=== PATIENT | male | born 1945 | race Caucasian/White ===

== ENCOUNTER 2020-08-31 08:22 | Day surgery (SDC) | payer MEDICARE, BC ==
[2020-08-29 16:38] LABS: ALANINE AMINOTRANSFERASE 27 U/L (12-78); ANION GAP 6 mmol/L (5-15); CALCIUM 9.5 mg/dL (8.5-10.1); CHLORIDE 104 mmol/L (98-107); CREATININE 1.31 mg/dL (0.7-1.3)
[2020-08-29 16:40] LABS: ALKALINE PHOSPHATASE 68 U/L (45-117); BILIRUBIN,TOTAL 0.5 mg/dL (0.2-1.0); TOTAL PROTEIN 7.4 g/dL (6.4-8.2)
[~2020-08-31] VITALS: Ht 182.9 cm; Wt 131.1 kg
[~2020-08-31 08:22] MED LIST: ALBU8.5H8 INH; ASPI81TA45 PO; BUDE10.2 INH; ESCI10TA10 PO; FLUT9.9S NAS; HYDR25TA6 PO; META800T PO; MONT10TA6 PO; MULT-658 PO; POLY10DR3 EACHEYE; ROSU40TA PO; TADA5TAB2 PO; UBID100C41 PO; UBID200C35 PO; VERA240T10 PO
[2020-08-31 08:47] VITALS: BP 132/79
[2020-08-31] MEDS ORDERED: LACTATED RINGERS 1,000 ML IV SCH (09:00)
[2020-08-31] MEDS ORDERED: CHLORHEXIDINE 15 ML UDC MM ONE (09:00)
[2020-08-31] MEDS ORDERED: HYDROmorphone 1 MG/ML, 1ML INJ IVPush PRN (09:30)
[2020-08-31] MEDS ORDERED: FENTANYL PF 100 MCG/2ML IV PRN (09:30)
[2020-08-31] MEDS ORDERED: PROMETHAZINE 25 MG/ML, 1ML IVPush PRN (09:30)
[2020-08-31] MEDS ORDERED: MEPERIDINE/PF 25MG/0.5ML IVPush PRN (09:30)
[2020-08-31] MEDS ORDERED: KETOROLAC 30 MG/1 ML IVPush PRN (09:30)
[2020-08-31] MEDS ORDERED: HYDROcodone/APAP 7.5-325MG/15ML UDC PO PRN (09:30)
[2020-08-31] MEDS ORDERED: MIDAZOLAM 1 MG/ML, 2ML ONE (10:19)
[2020-08-31] MEDS ORDERED: FENTANYL PF 100 MCG/2ML ONE ×2 (10:19→13:11)
[2020-08-31] MEDS ORDERED: POLYTRIM OPHTH 10ML EACHEYE SCH (10:30)
[2020-08-31] MEDS ORDERED: BUPIVACAINE/PF 0.5% ONE (10:58)
[2020-08-31] MEDS ORDERED: LIDOCAINE/PF 1%, 30ML ONE (10:58)
[2020-08-31] MEDS ORDERED: EPINEPHRINE 1 MG/ML, 1ML ONE (10:58)
[2020-08-31] MEDS ORDERED: LIDOCAINE-MPF 2% ,5ML ONE (11:23)
[2020-08-31] MEDS ORDERED: ROCURONIUM 10MG/ML,5ML ONE (11:23)
[2020-08-31] MEDS ORDERED: CEFAZOLIN 1,000 MG ONE (11:23)
[2020-08-31] MEDS ORDERED: LIDOCAINE 4%, 4 ML SYR/CANN TP ONE (11:23)
[2020-08-31] MEDS ORDERED: SUCCINYLCHOLINE 20 MG/ML, 10ML ONE (11:23)
[2020-08-31] MEDS ORDERED: DEXAMETHASONE 4 MG/ML, 5ML ONE (11:23)
[2020-08-31] MEDS ORDERED: ONDANSETRON 2MG/ML, 2ML ONE (11:23)
[2020-08-31] MEDS ORDERED: PROPOFOL 10 MG/ML, 20ML ONE (11:23)
[2020-08-31] MEDS ORDERED: BUPIVACAINE/PF-EPI 0.5% 1:200K INFIL ONE (12:05)
[2020-08-31] MEDS ORDERED: LIDOCAINE 1%-EPI 1:100K, 30ML INFIL ONE (12:06)
[2020-08-31] MEDS ORDERED: OXYcodone 5 MG/5 ML ORAL.SOL UDC ONE ×2 (14:21→15:34)
[2020-08-31] MEDS: OXYcodone 5 MG/5 ML ORAL.SOL UDC PO PRN ×2 (14:22→15:34)
[2020-08-31] MEDS ORDERED: hydrALAzine 20 MG/ML, 1ML ONE (14:44)
[2020-08-31] MEDS: hydrALAzine 20 MG/ML, 1ML IV PRN ×2 (14:47→15:14)
[2020-08-31] MEDS ORDERED: TEMPLATE NON-FORMULARY MED. (Budesonide/Formoterol Fumarate (Symbicort 160-4.5 Mcg Inhaler HOMEINH SCH (21:00)
[2020-08-31] MEDS ORDERED: ATORVASTATIN 80 MG TABLET PO SCH (21:00)
[2020-08-31] MEDS ORDERED: FLUTICASONE NASAL SPRAY 16GM NAS SCH (21:00)
[2020-08-31] MEDS ORDERED: ASPIRIN 81 MG TABLET EC PO SCH (21:00)
[2020-08-31] MEDS ORDERED: MONTELUKAST 10 MG TABLET PO SCH (21:00)
[2020-09-01] MEDS ORDERED: HYDROCHLOROTHIAZIDE 25 MG TABLET PO SCH (09:00)
[2020-09-01] MEDS ORDERED: ESCITALOPRAM 10MG TABLET PO SCH (09:00)
[2020-09-01] MEDS ORDERED: VERAPAMIL ER 240MG TABLET.ER PO SCH (09:00)
[2020-09-01] MEDS ORDERED: MULTIVITAMIN 1 TABLET PO SCH (09:00)
== END 2020-08-31 17:10 | disposition home or self-care (01) ==
LOC: OUT 08:22
PROVIDERS: ATTEND Orthopaedic Surgery
DX: S46.011A Strain of muscle(s) and tendon(s) of the rotator cuff of right shoulder, initial encounter (principal); S43.431A Superior glenoid labrum lesion of right shoulder, initial encounter; M19.011 Primary osteoarthritis, right shoulder; M75.41 Impingement syndrome of right shoulder; M65.811 Other synovitis and tenosynovitis, right shoulder; M94.211 Chondromalacia, right shoulder; M75.51 Bursitis of right shoulder; G89.18 Other acute postprocedural pain; I10 Essential (primary) hypertension; I48.91 Unspecified atrial fibrillation; F32.9 Major depressive disorder, single episode, unspecified; J45.909 Unspecified asthma, uncomplicated; E66.9 Obesity, unspecified; Z20.822 Contact with and (suspected) exposure to COVID-19; Z79.82 Long term (current) use of aspirin; Z79.899 Other long term (current) drug therapy; Z88.1 Allergy status to other antibiotic agents; Z91.040 Latex allergy status; X58.XXXA Exposure to other specified factors, initial encounter; Y93.89 Activity, other specified; Y92.89 Other specified places as the place of occurrence of the external cause; Y99.8 Other external cause status
CPT/HCPCS: 29823; 29824; 29826; 29827; 36415; 64415; 80053; 93005; C1713; J0171; J0330; J0360; J0690; J1100; J2250; J2405; J2704; J3010; J7120; U0003

== ENCOUNTER → 2021-05-21 | Outpatient (CLI) | payer MEDICARE, BC | END | disposition home or self-care (01) | LOC: LAB 09:58 | PROVIDERS: ATTEND Family Medicine | DX: Z12.5 Encounter for screening for malignant neoplasm of prostate (principal); I10 Essential (primary) hypertension ==